=== PATIENT | male | born 1970 | race Caucasian/White ===

== ENCOUNTER → 2018-02-26 17:32 | Outpatient (CLI) | payer OTHER, SELFPAY | PROVIDERS: PCP Physician Assistant; Visit Provider Physician Assistant | DX: Z01.818 Encounter for other preprocedural examination (principal) | CPT/HCPCS: 87070 ==

== ENCOUNTER → 2018-03-13 07:00 | Outpatient (CLI) | payer OTHER, SELFPAY ==
[2018-03-13 08:16] LABS: Add Manual Diff / Slide Review NO; Basophils Percent Auto 0.5 % (0-2); Eosinophils Percent Auto 1.5 % (2-4); Hematocrit 44.6 % (41-53); Hemoglobin 15.4 g/dL (13.5-17.5); Mean Corpuscular HGB Conc 34.4 % (30-36); Mean Corpuscular Volume 92.9 fL (80-100); Monocytes Percent Auto 9.2 % (3-14); Neutrophils Absolute Auto 6000 /uL (3000-5900); Neutrophils Percent Auto 62.8 % (50-75); Platelet Count 268 X10^3/uL (150-400); Red Cell Distribution Width 13.4 % (11.6-14.8); White Blood Cell Count 9.6 X10^3/uL (4.5-11.0)
[2018-03-13 08:27] LABS: Hemoglobin A1C% w Est Avg Glu 5.3 % (4.0-6.0)
[2018-03-13 08:30] LABS: Alanine Aminotransferase 37 IU/L (21-72); Albumin 4.7 g/dL (3.5-5.0); Albumin Globulin Ratio 1.7 (1.0-2.8); Alkaline Phosphatase 50 U/L (38-126); Aspartate Aminotransferase 30 IU/L (17-59); Bilirubin Total 0.6 mg/dL (0.2-1.3); Blood Urea Nitrogen 20 mg/dL (9-20); Calcium 9.5 mg/dL (8.4-10.2); Carbon Dioxide 30 mmol/L (22-32); Chloride 99 mmol/L (98-107); Estimated Glomerular Filt Rate > 60.0 mL/min (>60); Globulin 2.8 g/dL (1.7-4.1); Glucose 88 mg/dL (70-100); HEMOLYSIS < 15 (0-50); Potassium 4.5 mmol/L (3.4-5.1); Sodium 139 mmol/L (137-145); Total Protein 7.5 g/dL (6.3-8.2)
== END ==
PROVIDERS: PCP Physician Assistant; Visit Provider Physician Assistant
DX: Z01.818 Encounter for other preprocedural examination (principal)
CPT/HCPCS: 36415; 80053; 83036; 85025

== ENCOUNTER → 2018-07-07 13:27 | Outpatient (CLI) | payer OTHER, SELFPAY ==
--- NOTE | 2018-07-07 13:29 | DI.RAD.S_ITS ---
PROCEDURE: XR WRIST LT MIN 3V INDICATIONS: Pain left wrist radial side TECHNIQUE: 4 views of the wrist were acquired. COMPARISON: None. FINDINGS: Bones: No fractures or dislocations. No suspicious bony lesions. First CMC and triscaphe joint degeneration, mild. Soft tissues: No suspicious soft tissue calcifications. 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 on 07/07/2018 at 14:55 Approved by: Justo Graham M.D. on 07/07/2018 at 15:00
== END ==
PROVIDERS: PCP Physician Assistant; Visit Provider Physician Assistant
DX: M25.532 Pain in left wrist (principal); M18.12 Unilateral primary osteoarthritis of first carpometacarpal joint, left hand; M19.032 Primary osteoarthritis, left wrist
CPT/HCPCS: 73110

== ENCOUNTER 2018-09-28 09:18 | Emergency (ER) | payer OTHER, MEDICAID, SELFPAY ==
[2018-09-28 09:32] VITALS: BP 187/98; PULSE 74; RESP 18; TEMP 36.5; O2SAT 100; BMI 26.6
[2018-09-28] MEDS: SODIUM CHLORIDE 0.9% 1,000 ML 1000 ML IV (10:13)
--- NOTE | 2018-09-28 10:16 | ED_ITS ---
HPI - Male Genitourinary General Chief complaint: Urogenital-Male Stated complaint: ABD PAIN Time Seen by Provider: 09/28/18 09:29 Source: patient Mode of arrival: ambulatory Limitations: no limitations History of Present Illness HPI Narrative: Patient presents to the emergency department complaining of right flank pain that began last night while having a bowel movement. Patient states that he has had existing pain in the area since about a week ago, after he went hiking and strained his ribs . Patient states, however, that the pain was beginning to improve and that he actually could not needed his pain medication anymore, when the episode occurred last night. Patient states that while he was sitting on the toilet straining, he suddenly felt a severe pain in his right lower posterior ribcage and states that this was a /10. States that ever since then, the pain has been worse than it was prior to the incident. Patient states the pain is made worse by anything that causes him to strain, such as coughing, sneezing, or blowing; he also states that deep breaths make the pain worse, as to certain movements. He denies shortness of breath, but states it hurts to take a deep breath. Patient states that he has not had a cough or fever. He had noticed some bruising on his right upper abdominal wall after the rib injury, but that this is resolving. He states he did feel that the pain wraps around to his right upper quadrant, but it seemed that it was located mostly in the flank area. Patient denies nausea. No constipation or diarrhea. No chest pain. Patient is hard of hearing but otherwise states that he is healthy and active. Patient is not known to have any gallbladder issues, and no history of this in the family either. Related Data Home Medications Medication Instructions Recorded Confirmed Flonase 50 mcg INHALATION PRN 02/26/18 10/01/18 Gabapentin 300 mg PO QAM 02/26/18 10/01/18 Centrum for Men 1 tab PO .QDAY 03/11/18 10/01/18 Previous Rx's Medication Instructions Recorded metoprolol succinate ER 50 mg 50 mg PO DAILY #90 tab 04/30/18 tablet,extended release 24 hr escitalopram 20 mg tablet 20 mg PO DAILY #90 tab 07/03/18 bupropion HCl 100 mg tablet 100 mg PO BID #60 tab 08/27/18 hydrocodone-acetaminophen 1 tab PO Q4-6H PRN #20 tab 09/28/18 ibuprofen 800 mg PO TID PRN #20 tab 09/28/18 tamsulosin 0.4 mg capsule 0.4 mg PO DAILY #60 cap 10/01/18 tramadol 50 mg tablet 50 mg PO TID PRN #30 tab 10/01/18 Allergies Allergy/AdvReac Type Severity Reaction Status Date / Time No Known Drug Allergies Allergy Verified 10/01/18 08:21 Review of Systems Constitutional Denies chills, Denies fever(s), Denies lethargy and Denies weakness Eyes Denies change in vision, Denies eye discharge, Denies irritation and Denies loss of vision ENT Ears, Nose, Mouth, and Throat: Denies change in voice, Denies neck pain and Denies sore throat Cardiovascular Denies chest pain, Denies irregular heart rhythm, Denies lightheadedness, Denies palpitations, Denies dyspnea, Denies dyspnea on exertion and Denies orthopnea Respiratory Denies cough, Denies dyspnea, Denies dyspnea on exertion and Denies wheezing Gastrointestinal Gastrointestinal: Denies abdominal pain, Denies change in bowel habits, Denies diarrhea, Denies nausea and Denies vomiting Genitourinary Denies hematuria, Denies flank pain, Denies urinary incontinence and Denies urinary urgency Musculoskeletal Denies neck pain Comments: Right posterior rib pain Integumentary/Breasts Denies pruritus, Denies erythema, Denies rash and Denies wounds Neurologic Denies confusion, Denies loss of vision and Denies weakness Psychiatric Denies anxiety, Denies confusion, Denies depression, Denies homicidal ideation and Denies suicidal ideation Endocrine Denies palpitations Hematologic/Lymphatic Denies easy bruising Allergic/Immunologic Denies wheezing [facility] Medical History Healthy adult (Acute) Allergy (Resolved Unknown) Anorexia nervosa (Inactive) Depression (Inactive) Hearing loss (Inactive ~1970) Surgical History No pertinent past surgical history (Acute) Social History marital status: unmarried,single pets and animals: Yes education level: college occupational status: employed seatbelt use: always water heater temp set < 120 deg: Yes working smoke detector in home: Yes fire extinguisher in home: Yes Smoking Status: Never smoker second hand exposure: No alcohol intake: former substance use type: marijuana during the past year weight has: decreased > 10 lbs well-balanced diet: daily or most days daily servings fruits/ve-4 caffeine: Yes eating out: rarely or never Social History marital status: unmarried,single pets and animals: Yes education level: college occupational status: employed seatbelt use: always water heater temp set < 120 deg: Yes working smoke detector in home: Yes fire extinguisher in home: Yes Smoking Status: Never smoker second hand exposure: No alcohol intake: former substance use type: marijuana during the past year weight has: decreased > 10 lbs well-balanced diet: daily or most days daily servings fruits/ve-4 caffeine: Yes eating out: rarely or never Exam Initial Vital Signs Initial Vital Signs: Vital Signs Temperature 97.7 F 09/28/18 09:32 Pulse Rate 74 09/28/18 09:32 Respiratory Rate 18 09/28/18 09:32 Blood Pressure 187/98 H 09/28/18 09:32 Pulse Oximetry 100 09/28/18 09:32 Const General: cooperative and well developed Nutritional Appearance: well nourished Orientation: alert, awake, oriented x3 and not confused HENMT Head: normocephalic and atraumatic Ears: external ears normal and TM's normal bilaterally Nose: external nose normal and No nasal discharge Face and sinus: sinuses nontender, face symmetric, no sinus tenderness and No dry mucous membranes Mouth: oral mucosae normal and moist mucous membranes Teeth and gingiva: dentition normal Throat: tonsils normal and uvula midline Eyes General: appearance normal, both eyes and all related structures Eyelids: eyelids normal Conjunctivae: conjunctivae normal Sclera: sclerae normal Pupils: PERRL EOM: EOM intact bilaterally Neck Neck: normal visual inspection, trachea midline, No lymphadenopathy, No midline deformity and No JVD Lymphatic: No lymphedema Chest Chest: normal inspection of the chest Other: Patient has tenderness over his posterior inferior rib cage laterally over ribs 8 through 10. No crepitus or step-off. Resp Effort & Inspection: normal respiratory effort, able to speak in complete sentences, no respiratory distress and no use of accessory muscles Auscultation: clear to auscultation bilaterally, no rales, no rhonchi and no wheezes Cardio Rate: regular rate Rhythm: regular rhythm Heart Sounds: no click, no gallops, no murmurs and no rubs Pulses: normal peripheral pulses GI Inspection: non-distended Palpation: soft, no hepatosplenomegaly, No guarding, No pulsatile mass and No tender Auscultation: normal bowel sounds Back/Spine/Pelvis Back: No CVA tenderness Cervical Spine: cervical ROM normal and No pain with cervical ROM Thoracic/Lumbar Spine: thoracic and lumbar spine normal to inspection Skin General: no rashes or lesions noted, No jaundice and No petechiae Neuro General: alert, oriented x3, gait normal and no focal motor deficits Speech: speech normal Extrem General: full ROM, no clubbing, cyanosis or edema, no pedal edema and no calf tenderness Psych Appearance: well kempt Mental Status: mental status grossly normal Attitude: cooperative Thought Content: normal and suicidality Judgment: judgment good Course Course Narrative: Patient was worked up with urinalysis, lab work, and imaging. He was treated symptomatically with Toradol and Dilaudid IV. labs were unremarkable, and patient was further worked up with a CT scan of the abdomen and pelvis. This was also unremarkable. I did discuss with the patient that most likely, the pain is coming from the thoracic strain he sustained last week. Ribs are visible on CT scan up to the area where the patient is hurting, and no fractures have been noted. No emergent condition has been identified at this time and the usual indications for return have been discussed. Orders Ordered: Discontinued Medications Hydromorphone HCl (Dilaudid) 1 mg IV NOW ONE Stop: 09/28/18 10:17 Last Admin: 09/28/18 10:31 Dose: 1 mg Hydromorphone HCl (Dilaudid) 1 mg IV NOW ONE Stop: 09/28/18 13:55 Last Admin: 09/28/18 14:00 Dose: 1 mg Sodium Chloride (Normal Saline 0.9%) 1,000 mls @ 1,000 mls/hr IV BOLUS ONE Stop: 09/28/18 11:03 Last Infusion: 09/28/18 11:36 Dose: 0 mls/hr Admin: 09/28/18 10:13 Dose: 1,000 mls/hr Ketorolac Tromethamine (Toradol) 30 mg IV NOW ONE Stop: 09/28/18 10:17 Last Admin: 09/28/18 10:31 Dose: 30 mg Vital Signs - 8 hr 09/28/18 09:32 Temperature 97.7 F Pulse Rate 74 Respiratory Rate 18 Blood Pressure 187/98 H Pulse Oximetry 100 MDM - Male Genitourinary Medical Records Attestation: I reviewed the patient's medical records. Lab Data Attestation: I reviewed the patient's lab results. Result diagrams: 09/28/18 10:20 09/28/18 10:20 Lab Results 09/28/18 09/28/18 09/28/18 Range/Units 10:20 10:20 10:20 WBC 8.9 (4.5-11.0) X10^3/uL RBC 4.41 L (4.5-5.9) X10^6/uL Hgb 13.6 (13.5-17.5) g/dL Hct 40.0 L (41-53) % MCV 90.8 (80-100) fL MCH 30.9 (26-34) PG MCHC 34.0 (30-36) % RDW 13.4 (11.6-14.8) % Plt Count 208 (150-400) X10^3/uL Neut % (Auto) 70.9 (50-75) % Lymph % (Auto) 19.4 L (25-40) % [place] % (Auto) 8.3 (3-14) % Eos % (Auto) 0.7 L (2-4) % Baso % (Auto) 0.7 (0-2) % Neut # (Auto) 6300 (8922-4177) /uL Lymph # (Auto) 1700 (1037-3949) /uL [place] # (Auto) 700 (0-900) /uL Eos # (Auto) 100 (0-450) /uL Baso # (Auto) 100 (0-100) /uL Sodium 138 (137-145) mmol/L Potassium 3.6 (3.4-5.1) mmol/L Chloride 100 (98-107) mmol/L Carbon Dioxide 25 (22-32) mmol/L BUN 18 (9-20) mg/dL Creatinine 0.70 (0.66-1.25) mg/dL Estimated GFR > 60.0 (>60) mL/min BUN/Creatinine Ratio 25.7 H (6-22) Glucose 92 (70-100) mg/dL Calcium 9.5 (8.4-10.2) mg/dL Total Bilirubin 0.5 (0.2-1.3) mg/dL AST 26 (17-59) IU/L ALT 36 (21-72) IU/L Alkaline Phosphatase 64 (38-126) U/L Total Protein 7.3 (6.3-8.2) g/dL Albumin 4.5 (3.5-5.0) g/dL Globulin 2.8 (1.7-4.1) g/dL Albumin/Globulin Ratio 1.6 (1.0-2.8) Lipase 88 (23-300) U/L Urine Dip Bedside Urine Glucose Negative Bedside Urine Bilirubin - Negative Bedside Urine Ketone - Negative Urine Specific [place] 1.015 Bedside Urine Occult Blood - Negative Bedside Urine pH 7.0 Bedside Urine Protein - Negative Bedside Urine Urobilinogen - Negative Bedside Urine Nitrite - Negative Bedside Urine Leukocytes - Negative Esterase Imaging Data CT scan - abdomen: Radiologist's impression: PROCEDURE: CT KIDNEY URETER BLADDER (KUB) INDICATIONS: R flank pain (up to ribs) TECHNIQUE: Noncontrast 5 mm thick sections acquired from the diaphragms to the symphysis. 5 mm thick coronal and sagittal reformats were then performed. For radiation dose reduction, the following was used: automated exposure control, adjustment of mA and/or kV according to patient size. COMPARISON: None. FINDINGS: Image quality: Excellent. Lung bases: Lung bases are clear. Heart size is normal. Urinary system: Both kidneys are normal in size. No kidney stones. No hydronephrosis or perinephric fat stranding. Both ureters appear non-dilated throughout their expected courses. Bladder wall thickness is normal; no calcified bladder stones. Other solid organs: Liver is normal in size. Gallbladder is unremarkable.. Pancreas is normal in contours. Spleen is normal in size. No adrenal nodules. Peritoneum and bowel: Unenhanced bowel loops demonstrate normal wall thickness and caliber. No free fluid or air. Normal appendix. No abscess. Nodes and vessels: No retroperitoneal or mesenteric adenopathy by size criteria. Aorta and inferior vena cava are normal in caliber. Abdominal wall: No ventral hernias. Pelvis: No free pelvic fluid. No inguinal hernias or adenopathy. Bones: No suspicious bony lesions. No vertebral body compression fractures. IMPRESSION: 1. No evidence of renal stone or ureteral stone. 2. Otherwise unremarkable CT KUB. Dictated by: Nii Bales M.D. on 09/28/2018 at 11:53 Approved by: Nii Bales M.D. on 09/28/2018 at 11:57 Discharge Plan Departure Patient Disposition: Home Clinical Impression: Rib pain on right side, Acute right flank pain Discharge Date/Time: 09/28/18 14:51 Interventions: ED Discharge Assessment Last Done: 09/28/18 14:51 Instructions: DI for Rib Contusion, DI for Flank Pain Activity Restrictions/Additional Instructions: Your CT scan looks good. There is no evidence of problems with any of your organs. There is also no evidence of any broken ribs. When you were straining last night, you most likely aggravated the area where the strain occurred, and this is the cause of the pain. This should get better on its own the next couple weeks. You may use pain medication and anti-inflammatories, as needed. Prescriptions: New ibuprofen 800 mg tablet 800 mg PO TID PRN (Reason: pain) Qty: 20 RF: 0 hydrocodone-acetaminophen 5-325 mg tablet 1 tab PO Q4-6H PRN (Reason: pain) Qty: 20 RF: 0 No Action Flonase 50 mcg INHALATION PRNRF: 0 Gabapentin 300 mg PO QAM RF: 0 Centrum for Men 1 tab PO .QDAY RF: 0 metoprolol succinate 50 mg tablet extended release 24 hr 50 mg PO DAILY Qty: 90 RF: 0 escitalopram oxalate 20 mg tablet 20 mg PO DAILY Qty: 90 RF: 3 bupropion HCl 100 mg tablet 100 mg PO BID Qty: 60 RF: 3 tramadol 50 mg tablet 50 mg PO TID PRN (Reason: pain) Qty: 30 RF: 3 tamsulosin 0.4 mg capsule 0.4 mg PO DAILY Qty: 60 RF: 3 Referrals: Yulisa Drew PA-C [Primary Care Provider] -
[2018-09-28 10:31] LABS: Add Manual Diff / Slide Review NO; Basophils Absolute Auto 100 /uL (0-100); Basophils Percent Auto 0.7 % (0-2); Eosinophils Absolute Auto 100 /uL (0-450); Eosinophils Percent Auto 0.7 % (2-4); Hemoglobin 13.6 g/dL (13.5-17.5); Lymphocytes Absolute Auto 1700 /uL (1100-4500); Lymphocytes Percent Auto 19.4 % (25-40); Mean Corpuscular Hemoglobin 30.9 PG (26-34); Mean Corpuscular Volume 90.8 fL (80-100); Monocytes Absolute Auto 700 /uL (0-900); Monocytes Percent Auto 8.3 % (3-14); Neutrophils Absolute Auto 6300 /uL (1500-7000); Neutrophils Percent Auto 70.9 % (50-75); Platelet Count 208 X10^3/uL (150-400); Red Blood Cell Count 4.41 X10^6/uL (4.5-5.9); Red Cell Distribution Width 13.4 % (11.6-14.8); White Blood Cell Count 8.9 X10^3/uL (4.5-11.0)
[2018-09-28] MEDS: KETOROLAC 60 MG/2 ML VIAL 30 MG IV (10:31)
[2018-09-28] MEDS: HYDROMORPHONE 1 MG INJ IV ×2 (10:31→14:00)
[2018-09-28 10:39] LABS: Lipase 88 U/L (23-300)
[2018-09-28 10:40] LABS: Alanine Aminotransferase 36 IU/L (21-72); Albumin 4.5 g/dL (3.5-5.0); Albumin Globulin Ratio 1.6 (1.0-2.8); Alkaline Phosphatase 64 U/L (38-126); Aspartate Aminotransferase 26 IU/L (17-59); BUN Creatinine Ratio 25.7 (6-22); Bilirubin Total 0.5 mg/dL (0.2-1.3); Blood Urea Nitrogen 18 mg/dL (9-20); Calcium 9.5 mg/dL (8.4-10.2); Carbon Dioxide 25 mmol/L (22-32); Chloride 100 mmol/L (98-107); Estimated Glomerular Filt Rate > 60.0 mL/min (>60); Globulin 2.8 g/dL (1.7-4.1); Glucose 92 mg/dL (70-100); HEMOLYSIS < 15 (0-50); Potassium 3.6 mmol/L (3.4-5.1); Sodium 138 mmol/L (137-145); Total Protein 7.3 g/dL (6.3-8.2)
--- NOTE | 2018-09-28 11:22 | DI.CT.S_ITS ---
PROCEDURE: CT KIDNEY URETER BLADDER (KUB) INDICATIONS: R flank pain (up to ribs) TECHNIQUE: Noncontrast 5 mm thick sections acquired from the diaphragms to the symphysis. 5 mm thick coronal and sagittal reformats were then performed. For radiation dose reduction, the following was used: automated exposure control, adjustment of mA and/or kV according to patient size. COMPARISON: None. FINDINGS: Image quality: Excellent. Lung bases: Lung bases are clear. Heart size is normal. Urinary system: Both kidneys are normal in size. No kidney stones. No hydronephrosis or perinephric fat stranding. Both ureters appear non-dilated throughout their expected courses. Bladder wall thickness is normal; no calcified bladder stones. Other solid organs: Liver is normal in size. Gallbladder is unremarkable.. Pancreas is normal in contours. Spleen is normal in size. No adrenal nodules. Peritoneum and bowel: Unenhanced bowel loops demonstrate normal wall thickness and caliber. No free fluid or air. Normal appendix. No abscess. Nodes and vessels: No retroperitoneal or mesenteric adenopathy by size criteria. Aorta and inferior vena cava are normal in caliber. Abdominal wall: No ventral hernias. Pelvis: No free pelvic fluid. No inguinal hernias or adenopathy. Bones: No suspicious bony lesions. No vertebral body compression fractures. IMPRESSION: 1. No evidence of renal stone or ureteral stone. 2. Otherwise unremarkable CT KUB. Dictated by: Nii Bales M.D. on 09/28/2018 at 11:53 Approved by: Nii Bales M.D. on 09/28/2018 at 11:57
[2018-09-28 11:39] VITALS: BP 146/104; PULSE 72; RESP 17; O2SAT 98
[2018-09-28 12:03] VITALS: BP 153/99; PULSE 76; O2SAT 98
[2018-09-28 13:30] VITALS: BP 156/102; PULSE 80; O2SAT 95
== END 2018-09-28 14:51 | disposition home or self-care (01) ==
PROVIDERS: Emergency Provider Emergency Medicine; PCP Physician Assistant
DX: R10.9 Unspecified abdominal pain (principal)
CPT/HCPCS: 36415; 36591; 74176; 80053; 81003; 83690; 85025; 96361; 96374; 96375; 96376; 99283; 99284; J1170; J1885

== ENCOUNTER → 2018-10-13 07:41 | Outpatient (CLI) | payer OTHER, MEDICAID, SELFPAY ==
--- NOTE | 2018-10-13 07:44 | DI.MRI.S_ITS ---
PROCEDURE: MR LUMBAR SPINE WO CON INDICATIONS: Low back pain; weakness left lower leg TECHNIQUE: Noncontrast sagittal T1 spin echo and T2 fast echo, sagittal STIR, axial T1 and T2 fast spin echo through the lumbar spine. In cases with scoliosis, additional coronal T2 fast spin echo may be performed. COMPARISON: None. FINDINGS: Image quality: Excellent. Alignment and Curvature: There is normal bony alignment. Bone Marrow: Marrow is of normal overall signal. No acute vertebral body compression fractures. Spinal Cord: Conus medullaris terminates at the L1-L2 level. Visualized cord demonstrates normal signal and size. Paraspinous Soft Tissues: No paravertebral masses. L1-L2: Normal appearance. L2-L3: Normal appearance. L3-L4: Normal appearance. L4-L5: Normal appearance. L5-S1: Preserved disc height. Mild disc desiccation. There is mild posterior disc bulge and small posterior central annular fissure. The central canal is patent. No foraminal stenosis.. IMPRESSION: 1. Degenerative disc disease at L5-S1 with posterior disc bulge and posterior central annular fissure. 2. No central canal stenosis. 3. No foraminal stenosis. Dictated by: Raudel Blackwood M.D. on 10/13/2018 at 8:58 Approved by: Raudel Blackwood M.D. on 10/13/2018 at 13:17
== END ==
PROVIDERS: PCP Physician Assistant; Visit Provider Physician Assistant
DX: M54.5 Low back pain (principal); M51.17 Intervertebral disc disorders with radiculopathy, lumbosacral region; R29.898 Other symptoms and signs involving the musculoskeletal system
CPT/HCPCS: 72148

== ENCOUNTER → 2018-10-27 11:03 | Outpatient (CLI) | payer OTHER, MEDICAID, SELFPAY ==
--- NOTE | 2018-10-27 11:06 | DI.RAD.S_ITS ---
PROCEDURE: XR RIBS RT MIN 3V W CXR 1V INDICATIONS: Fall while hiking in September;persistant rib pain on right side TECHNIQUE: 2 views of the right ribs were acquired, along with a single view chest. COMPARISON: None. FINDINGS: Surgical changes and devices: None. Bones and chest wall: No fractures or dislocations. No suspicious bony lesions. Overlying soft tissues appear unremarkable. Lungs and pleura: No pleural effusions or pneumothorax. Lungs appear clear. Mediastinum: Mediastinal contours appear normal. Heart size is normal. IMPRESSION: No trauma found. Dictated by: Andres Hernandez M.D. on 10/27/2018 at 12:43 Approved by: Andres Hernandez M.D. on 10/27/2018 at 12:43
== END ==
PROVIDERS: PCP Physician Assistant; Visit Provider Physician Assistant
DX: R07.81 Pleurodynia (principal)
CPT/HCPCS: 71101

== ENCOUNTER 2018-11-27 15:20 | Emergency (ER) | payer OTHER, MEDICAID, SELFPAY ==
--- NOTE | 2018-11-27 15:27 | PC.NURSE ---
1519 recieved pt from em[facility], pt to room 2, met the pt states, i want to get check right away, I need to be dc in 5minutes, dr bearden at bs. pt escalating, rips out cardiac rehabilitation program director, yelling and swearing, f you. on arrival placed on cardiac rehabilitation program director hr 119, sat 98% ra. pt repeatedly stating check me and dc in 5 minutes or else I will be walking out.
--- NOTE | 2018-11-27 15:30 | PC.NURSE ---
rechargerbrijesh helms, called police.
--- NOTE | 2018-11-27 15:46 | CM.MNRNOTE ---
pt became angry, cursing at staff. pt states i want to leave explained he has not finished his evaluation, and advised against him leaving. pt states fuck you, bitch im leaving pt states where the fuck are my keys, get me the emergency room they have my keys explained to patient he is in the er, we have looked for his keys and not been found. pt again curses at staff and call them foul names. patient asked to leave. pt escorted to door. pt again states fuck you bitch. explained to patient again I would call ambulance and ask if he keys are in the rig, pt curses again. explained to patient his behavior is inappropriate, pt continues with behavior and begins walking aggressivly at staff. pt asked to stop and told the police will be called if he continues to ask inappropriately, pt asked to sit on couch while i called fire department to inquire about keys. pt attempted to follow staff back into department, angery and demanding keys. pt states dont call the bonderite operator explained that if he could calmly sit on couch and stop cursing and being inappropriate, only the ambulance would be called. pt then states fuck that bitch. pt did not follow direction and the police were called. Police arrived and spoke with patient. at registration area. pt calmer. keys were located at [employer] in customer service. Pt informed of location.
--- NOTE | 2018-11-27 15:54 | ED.SYNCOPE ---
HPI - Syncope General Stated Complaint: Altered Mental Status Time Seen by Provider: 11/27/18 15:35 Source: EMS Mode of arrival: EMS History of Present Illness HPI narrative: 48-year-old male smoker presents by EMS with a chief complaint of a syncopal episode while at work. He denies any injury and is alert and oriented by his arrival here. He does have history of alcohol but denies any today. It was his 1st day back at work after an extended period of time off and he is admittedly stressed. He was very resistant to presenting by EMS but was eventually convinced to be checked out. Nearly immediately upon entering the room he insisted upon leaving despite any attempt at discussion of risks and benefits. He has full capacity to make this decision and is awake, alert and oriented. He is speaking clearly and walking with a steady gait. MD complaint: almost passed out Prodromal symptoms: lightheaded Context: at rest Current symptoms: none Related Data Home Medications Medication Instructions Recorded Confirmed Flonase 50 mcg INHALATION PRN 02/26/18 11/04/18 Gabapentin 300 mg PO QAM 02/26/18 11/04/18 Centrum for Men 1 tab PO .QDAY 03/11/18 11/04/18 Previous Rx's Medication Instructions Recorded metoprolol succinate ER 50 mg 50 mg PO DAILY #90 tab 04/30/18 tablet,extended release 24 hr escitalopram 20 mg tablet 20 mg PO DAILY #90 tab 07/03/18 bupropion HCl 100 mg tablet 100 mg PO BID #60 tab 08/27/18 tamsulosin 0.4 mg capsule 0.4 mg PO DAILY #60 cap 10/01/18 hydrocodone 5 mg-acetaminophen 325 1 tab PO BID PRN #30 tab 10/22/18 mg tablet Allergies Allergy/AdvReac Type Severity Reaction Status Date / Time No Known Drug Allergies Allergy Verified 10/22/18 10:33 Review of Systems Constitutional Denies chills, Denies fever(s), Denies lethargy and Denies weakness Eyes Denies change in vision, Denies eye discharge, Denies irritation and Denies loss of vision ENT Ears, Nose, Mouth, and Throat: Denies change in voice, Denies neck pain and Denies sore throat Cardiovascular Denies chest pain, Reports syncope, Denies irregular heart rhythm, Denies lightheadedness, Denies palpitations, Denies dyspnea, Denies dyspnea on exertion and Denies orthopnea Respiratory Denies cough, Denies dyspnea, Denies dyspnea on exertion and Denies wheezing Gastrointestinal Gastrointestinal: Denies abdominal pain, Denies change in bowel habits, Denies diarrhea, Denies nausea and Denies vomiting Genitourinary Denies hematuria, Denies flank pain, Denies urinary incontinence and Denies urinary urgency Musculoskeletal Denies neck pain Integumentary/Breasts Denies pruritus, Denies erythema, Denies rash and Denies wounds Neurologic Denies confusion, Reports syncope, Denies loss of vision and Denies weakness Psychiatric Denies anxiety, Denies confusion, Denies depression, Denies homicidal ideation and Denies suicidal ideation Endocrine Denies palpitations Hematologic/Lymphatic Denies easy bruising Allergic/Immunologic Denies wheezing PFSH Medical History Allergy (Resolved Unknown) Anorexia nervosa (Inactive) Depression (Inactive) Healthy adult (Inactive) Hearing loss (Inactive ~1970) Surgical History No pertinent past surgical history (Resolved) Social History marital status: unmarried,single pets and animals: Yes education level: college occupational status: employed seatbelt use: always water heater temp set < 120 deg: Yes working smoke detector in home: Yes fire extinguisher in home: Yes Smoking Status: Never smoker second hand exposure: No alcohol intake: former substance use type: marijuana during the past year weight has: decreased > 10 lbs well-balanced diet: daily or most days daily servings fruits/ve-4 caffeine: Yes eating out: rarely or never Social History marital status: unmarried,single pets and animals: Yes education level: college occupational status: employed seatbelt use: always water heater temp set < 120 deg: Yes working smoke detector in home: Yes fire extinguisher in home: Yes Smoking Status: Never smoker second hand exposure: No alcohol intake: former substance use type: marijuana during the past year weight has: decreased > 10 lbs well-balanced diet: daily or most days daily servings fruits/ve-4 caffeine: Yes eating out: rarely or never Exam Narrative Exam Narrative: Patient refused He is alert and oriented. He is speaking clearly and walking with a steady gait. He has no obvious injury MDM - Syncope MDM Narrative Medical decision making narrative: Multiple attempts made to convince patient to stay. Offers made to call friends, family or ex-. 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 Discharge Plan Departure Patient Disposition: Left Against Medical Advice Clinical Impression: Left against medical advice Discharge Date/Time: 11/27/18 15:55 Prescriptions: No Action Flonase 50 mcg INHALATION PRNRF: 0 Gabapentin 300 mg PO QAM RF: 0 Centrum for Men 1 tab PO .QDAY RF: 0 metoprolol succinate 50 mg tablet extended release 24 hr 50 mg PO DAILY Qty: 90 RF: 0 escitalopram oxalate 20 mg tablet 20 mg PO DAILY Qty: 90 RF: 3 bupropion HCl 100 mg tablet 100 mg PO BID Qty: 60 RF: 3 tamsulosin 0.4 mg capsule 0.4 mg PO DAILY Qty: 60 RF: 3 hydrocodone-acetaminophen 5-325 mg tablet 1 tab PO BID PRN (Reason: pain) Qty: 30 RF: 0 Stand Alone Forms: Against Medical Advice
== END 2018-11-27 15:55 | disposition left against medical advice (07) ==
LOC: ED 15:52
PROVIDERS: Emergency Provider Emergency Medicine; PCP Physician Assistant
DX: R55 Syncope and collapse (principal); Z53.20 Procedure and treatment not carried out because of patient's decision for unspecified reasons
CPT/HCPCS: 99282

== ENCOUNTER → 2018-12-23 09:37 | Outpatient (CLI) | payer OTHER, MEDICAID, SELFPAY ==
--- NOTE | 2018-12-23 09:40 | DI.RAD.S_ITS ---
PROCEDURE: XR RIBS RT MIN 3V W CXR 1V INDICATIONS: s/p fall, right neck pain, right lower rib pain TECHNIQUE: 3 views of the right ribs were acquired, along with a single view chest. COMPARISON: [facility], CR, XR RIBS RT MIN 3V W CXR 1V, 10/27/2018, 11:08. FINDINGS: Surgical changes and devices: None. Bones and chest wall: Right lateral 9th rib fracture with sclerosis. This is new compared to prior exam. No suspicious bony lesions. Overlying soft tissues appear unremarkable. Lungs and pleura: No pleural effusions or pneumothorax. Lungs appear clear. Mediastinum: Mediastinal contours appear normal. Heart size is normal. IMPRESSION: Subacute lateral right ninth rib fracture. Dictated by: Meena Young M.D. on 12/23/2018 at 11:02 Approved by: Meena Young M.D. on 12/23/2018 at 11:06
--- NOTE | 2018-12-23 09:40 | DI.RAD.S_ITS ---
PROCEDURE: XR CERVICAL SPINE 2V OR 3V INDICATIONS: s/p fall, right neck pain, right lower rib pain TECHNIQUE: 3 view(s) of the cervical spine were acquired. COMPARISON: None. FINDINGS: Bones: No fractures or dislocations to the C7-T1 level. The lateral masses of C1 appear intact on the odontoid view. No suspicious bony lesions. Anterior fusion is present at C5-6. Hardware is intact. Soft tissues: No prevertebral soft tissue swelling. IMPRESSION: No visualized acute fracture or dislocation. However, if clinical concern and/or pain persist, short interval imaging followup in 7-10 days is recommended, as occult injury cannot be definitively excluded. Dictated by: Meena Young M.D. on 12/23/2018 at 11:06 Approved by: Meena Young M.D. on 12/23/2018 at 11:06
== END ==
PROVIDERS: PCP Physician Assistant; Visit Provider Nurse Practitioner
DX: M54.2 Cervicalgia (principal); R07.81 Pleurodynia; S22.31XA Fracture of one rib, right side, initial encounter for closed fracture; W19.XXXA Unspecified fall, initial encounter; Z98.1 Arthrodesis status
CPT/HCPCS: 71101; 72040

== ENCOUNTER 2023-04-06 19:24 | Emergency (ER) | payer OTHER, SELFPAY ==
[2023-04-06 19:28] VITALS: BP 153/74; PULSE 79; RESP 18; TEMP 37.2; O2SAT 99; BMI 20.3
[2023-04-06] MEDS: HYDROMORPHONE 0.5 MG INJ IV (19:57)
[2023-04-06] MEDS: ONDANSETRON 4 MG/2 ML INJ IV (19:58)
[2023-04-06 19:59] LABS: Add Manual Diff / Slide Review NO; Basophils Absolute Auto 100 /uL (0-100); Basophils Percent Auto 1.1 % (0-2); Eosinophils Absolute Auto 300 /uL (0-450); Eosinophils Percent Auto 3.4 % (2-4); Hematocrit 39.3 % (41-53); Hemoglobin 13.5 g/dL (13.5-17.5); Lymphocytes Absolute Auto 1900 /uL (1100-4500); Lymphocytes Percent Auto 23.8 % (25-40); Mean Corpuscular HGB Conc 34.5 % (30-36); Mean Corpuscular Hemoglobin 30.7 PG (26-34); Monocytes Absolute Auto 800 /uL (0-900); Monocytes Percent Auto 9.7 % (3-14); Neutrophils Absolute Auto 5000 /uL (1500-7000); Platelet Count 271 X10^3/uL (150-400); Red Blood Cell Count 4.41 X10^6/uL (4.5-5.9); White Blood Cell Count 8.1 X10^3/uL (4.5-11.0)
[2023-04-06 20:13] LABS: Alanine Aminotransferase 21 IU/L (<50); Albumin 4.5 g/dL (3.5-5.0); Albumin Globulin Ratio 1.4 (1.0-2.8); Alkaline Phosphatase 53 U/L (38-126); Aspartate Aminotransferase 22 IU/L (17-59); Bilirubin Total 0.3 mg/dL (0.2-1.3); Blood Urea Nitrogen 21 mg/dL (9-20); Calcium 9.3 mg/dL (8.4-10.2); Carbon Dioxide 27 mmol/L (22-32); Chloride 100 mmol/L (98-107); Estimated Glomerular Filt Rate > 60 mL/min (>60); Globulin 3.3 g/dL (1.7-4.1); Glucose 114 mg/dL (70-100); HEMOLYSIS 29 (0-50); Lipase 108 U/L (23-300); Potassium 4.4 mmol/L (3.4-5.1); Sodium 137 mmol/L (137-145); Total Protein 7.8 g/dL (6.3-8.2)
[2023-04-06 20:42] LABS: Bacteria Urine None Seen; RBC Urine 0-1/HPF (0-5/HPF); Squamous Epithelial Cell Urine None Seen (0-5/HPF); WBC Urine 0-1/HPF (0-5/HPF)
[2023-04-06 20:43] LABS: Triple Phosphate Crystal Urine Few
--- NOTE | 2023-04-06 21:25 | DI.CT.S_ITS ---
PROCEDURE: CT ABDOMEN PELVIS W CON INDICATIONS: Abdominal pain. TECHNIQUE: After the administration of intravenous contrast, axial sections acquired from the lung bases to the pubic symphysis. Coronal and sagittal reformats were performed. For radiation dose reduction, the following was used: automated exposure control, adjustment of mA and/or kV according to patient size. COMPARISON: None. FINDINGS: Image quality: Excellent. Lung bases: Unremarkable. Heart: No significant findings. ABDOMEN: Liver: Unremarkable. Gallbladder: Unremarkable. Biliary ducts: Unremarkable. Pancreas: Unremarkable. Spleen: Unremarkable. Adrenal Glands: Unremarkable. Kidneys and Ureters: Unremarkable. Stomach and Bowel: Stomach, small bowel loops, and colon are unremarkable. Generalized colonic obstipation. Peritoneum: No abnormal intraperitoneal fluid. No free air. Ventral Wall: No hernias. Abdominal Nodes: No retroperitoneal or mesenteric adenopathy by size criteria. Vessels: Aorta and inferior vena cava are normal in size. PELVIS: Pelvic Organs: Unremarkable. Bladder: Unremarkable. Pelvic Nodes: No enlarged lymph nodes. Miscellaneous: No hernias are seen. Generalized colonic obstipation. A normal or abnormal appendix could not be located. Bones: Unremarkable. IMPRESSION: Generalized colonic obstipation, present bilaterally. No definite acute disease. Dictated by: Andres Hernandez M.D. on 04/06/2023 at 21:48 Approved by: Andres Hernandez M.D. on 04/06/2023 at 21:49
--- NOTE | 2023-04-06 21:26 | ED.GENADULT ---
HPI - General Adult General Chief complaint: Abdominal Pain Stated complaint: stomach pain bowl obstruction Time Seen by Provider: 04/06/23 19:49 Source: patient Mode of arrival: Ambulatory History of Present Illness HPI narrative: 53-year-old gentleman with a history of significant anxiety presents with 4 days of increasing abdominal pain. He states that he feels that he is constipated however he has been fairly aggressive with trying to resolve his constipation and has used multiple doses of magnesium citrate, MiraLax as well as Dulcolax. He is had episodes of moderate stool in quite a bit of diarrhea. Having increasing suprapubic and left lower quadrant pain. Does not describe nausea, vomiting, chest pain or fevers. He has been increasingly bloated and has been uncomfortable enough that he has not been able to sleep for the past 24 hours. Related Data Home Medications Medication Instructions Recorded Confirmed Centrum for Men 1 tab PO .QDAY 03/11/18 05/17/22 Previous Rx's Medication Instructions Recorded gabapentin 300 mg capsule 300 mg PO BID #60 caps 09/19/21 bupropion HCl 150 mg 24 hr tablet, 150 mg PO QAM #90 tabs 05/17/22 extended release cyclobenzaprine 10 mg tablet 10 mg PO BEDTIME #30 tabs 05/17/22 escitalopram oxalate 20 mg tablet 20 mg PO DAILY #90 tabs 05/17/22 meloxicam 7.5 mg tablet 7.5 mg PO BID PRN hand pain #60 05/17/22 tabs Allergies Allergy/AdvReac Type Severity Reaction Status Date / Time No Known Drug Allergies Allergy Verified 05/17/22 13:55 Review of Systems Review of Systems Narrative: Pertinent positive and negative findings as per HPI Patient History Medical History (Updated 04/06/23 @ 23:24 by Archana Klein MD) Allergy (Unknown) Anorexia nervosa Depression Healthy adult Hearing loss (~1971) Surgical History No pertinent past surgical history Social History marital status: unmarried,single pets and animals: Yes education level: college occupational status: employed seatbelt use: always water heater temp set < 120 deg: Yes working smoke detector in home: Yes fire extinguisher in home: Yes Smoking Status: Never smoker second hand exposure: No alcohol intake: former substance use type: marijuana during the past year weight has: decreased > 10 lbs well-balanced diet: daily or most days daily servings fruits/ve-4 caffeine: Yes eating out: rarely or never Smoking Status: Never smoker alcohol intake frequency: a few times a month Substance Use Type: marijuana Exam Initial Vital Signs Initial Vital Signs: Vital Signs Temperature 99 F 04/06/23 19:28 Pulse Rate 79 04/06/23 19:28 Respiratory Rate 18 04/06/23 19:28 Blood Pressure 153/74 H 04/06/23 19:28 Pulse Oximetry 99 04/06/23 19:28 Oxygen Delivery Method Room Air 04/06/23 19:28 General: Frail appearing, unable to find a comfortable position and pacing about the room. Able to give a complete and coherent history. HEENT: Moist mucous membranes, normal sclera with reactive pupils, Respiratory: Lungs are clear to auscultation, no wheezing no rales no rhonchi. Full and symmetrical air movement Cardiac: Regular rate and rhythm no murmurs no bruits Abdomen: Slightly distended with left lower quadrant and mild suprapubic tenderness. No left flank pain. No rebound or guarding. Skin: Warm and dry, no rashes Neurologic: Grossly neurologically intact with no obvious asymmetries or abnormalities Extremities: No trauma, well perfused Psych: Cooperative, anxious, appropriate insight and affect Course Orders Ordered: ED Orders 04/06/23 19:38 EKG-12 Lead Stat 04/06/23 19:50 Complete Blood Count AUTO DIFF Stat Comprehensive Metabolic Panel Stat Lipase Stat 04/06/23 20:18 Urine Culture Stat Urine Microscopic Stat 04/06/23 21:25 CT abdomen pelvis w con Stat Hydromorphone HCl (Hydromorphone 0.5 Mg Inj) 0.5 mg IV Q15MIN PRN PRN Reason: Pain, Last Admin: 04/06/23 19:57 Dose: 0.5 mg Documented By: FLAQUITO Ondansetron HCl (Ondansetron 4 Mg Odt) 4 mg PO NOW PRN PRN Reason: Nausea And Vomiting Ondansetron HCl (Ondansetron 4 Mg/2 Ml Inj) 4 mg IV NOW PRN PRN Reason: Nausea And Vomiting Discontinued Medications Lorazepam (Lorazepam 2 Mg/Ml Inj) 0.5 mg IV NOW ONE Stop: 04/06/23 21:26 Last Admin: 04/06/23 21:57 Dose: 0.5 mg Documented By: JERALD Ondansetron HCl (Ondansetron 4 Mg/2 Ml Inj) 4 mg IV NOW ONE Stop: 04/06/23 19:54 Last Admin: 04/06/23 19:58 Dose: 4 mg Documented By: FLAQUITO Vital Signs Vital signs: Vital Signs - 8 hr 04/06/23 19:28 Temperature 99 F Pulse Rate 79 Respiratory Rate 18 Blood Pressure 153/74 H Pulse Oximetry 99 Oxygen Delivery Method Room Air Medical Decision Making Lab Data 04/06/23 19:50 04/06/23 19:50 Labs: Lab Results 04/06/23 04/06/23 04/06/23 Range/Units 19:50 19:50 20:18 WBC 8.1 (4.5-11.0) X10^3/uL RBC 4.41 L (4.5-5.9) X10^6/uL Hgb 13.5 (13.5-17.5) g/dL Hct 39.3 L (41-53) % MCV 89.0 (80-100) fL MCH 30.7 (26-34) PG MCHC 34.5 (30-36) % RDW 13.0 (11.6-14.8) % Plt Count 271 (150-400) X10^3/uL Neut % (Auto) 62.0 (50-75) % Lymph % (Auto) 23.8 L (25-40) % [place] % (Auto) 9.7 (3-14) % Eos % (Auto) 3.4 (2-4) % Baso % (Auto) 1.1 (0-2) % Neut # (Auto) 5000 (2723-5553) /uL Lymph # (Auto) 1900 (6158-5914) /uL [place] # (Auto) 800 (0-900) /uL Eos # (Auto) 300 (0-450) /uL Baso # (Auto) 100 (0-100) /uL Sodium 137 (137-145) mmol/L Potassium 4.4 (3.4-5.1) mmol/L Chloride 100 (98-107) mmol/L Carbon Dioxide 27 (22-32) mmol/L BUN 21 H (9-20) mg/dL Creatinine 0.75 (0.66-1.25) mg/dL Estimated GFR > 60 (>60) mL/min BUN/Creatinine Ratio 28.0 H (6-22) Glucose 114 H (70-100) mg/dL Calcium 9.3 (8.4-10.2) mg/dL Total Bilirubin 0.3 (0.2-1.3) mg/dL AST 22 (17-59) IU/L ALT 21 (<50) IU/L Alkaline Phosphatase 53 (38-126) U/L Total Protein 7.8 (6.3-8.2) g/dL Albumin 4.5 (3.5-5.0) g/dL Globulin 3.3 (1.7-4.1) g/dL Albumin/Globulin Ratio 1.4 (1.0-2.8) Lipase 108 (23-300) U/L Urine RBC 0-1/hpf (0-5/HPF) Urine WBC 0-1/hpf (0-5/HPF) Ur Squamous Epith Cells None seen (0-5/HPF) Triple Phos Crystals Few Urine Bacteria None seen (None) Urine Dip Bedside Urine Glucose Negative Bedside Urine Bilirubin - Negative Bedside Urine Ketone - Negative Urine Specific [place] 1.005 Bedside Urine Occult Blood - Negative Bedside Urine pH 8.5 Bedside Urine Protein + 30 Bedside Urine Urobilinogen - Negative Bedside Urine Nitrite - Negative Bedside Urine Leukocytes - Negative Esterase Point of care testing: Urine Dip Bedside Urine Glucose Negative Bedside Urine Bilirubin - Negative Bedside Urine Ketone - Negative Urine Specific [place] 1.005 Bedside Urine Occult Blood - Negative Bedside Urine pH 8.5 Bedside Urine Protein + 30 Bedside Urine Urobilinogen - Negative Bedside Urine Nitrite - Negative Bedside Urine Leukocytes - Negative Esterase MDM Narrative Medical decision making narrative: CC: Abdominal pain, concern for constipation times 4-7 days Complicating co-morbidities: Anxiety Data collected from: patient, significant other Medical records reviewed: Family practice visits are reviewed Differential considered: Constipation, colitis, urinary tract infection, kidney stone Exam documented above, pertinent findings include: Abdominal distention with left lower quadrant and suprapubic tenderness but no evidence of an acute surgical abdomen Lab Test results independently reviewed as above. Pertinent findings: CBC is unremarkable Metabolic panel is reassuring Urine is unremarkable Imaging studies independently reviewed: Generalized colonic obstipation, present bilaterally.? No definite acute disease. Treatments: Zofran and IV hydromorphone Re-evaluations: Findings reviewed with patient and his significant other. He is still having a moderate amount of abdominal discomfort but no evidence of acute surgical abdomen. His postvoid residual was less than 20 cc and his urine did not suggest urinary tract infection. No evidence of hydronephrosis or kidney abnormalities on his CT scan. No acute acute colitis or diverticulitis. We discussed options for helping him relieve his constipation. Given that he is already had bottle of magnesium citrate in a number of doses of MiraLax I am going to recommend bowel prep with polyethylene glycol. It looks like bowel prep equivalents are somewhere between 10 and 14 single doses of MiraLax. Patient has 9 doses available at home. They are able to get some more. He would like to start this as soon as possible recommended 3-4 doses when he went home with 2-3 packets continuing every hour until his stool is essentially clear. We talked about pain control with this recommended Tylenol. I think the best pain control is going to be getting the stool out. And talked about narcotics causing increasing constipation and decreasing bowel motility and why this would be contraindicated for his current situation. He is given a note for work. All questions are answered he is safe for discharge Discharge Plan Departure Patient Disposition: Home Clinical Impression: Constipation Qualifiers: Constipation type: unspecified constipation type Qualified Code(s): K59.00 - Constipation, unspecified Abdominal pain Qualifiers: Abdominal location: lower abdomen, unspecified Qualified Code(s): R10.30 - Lower abdominal pain, unspecified Instructions: DI for Constipation Activity Restrictions/Additional Instructions: Thank you for coming in today Your workup is quite reassuring. Blood work did not show any acute findings in the CT scan of your abdomen showed significant stool throughout your entire colon but no masses, tumors infections or need for hospitalization or surgical consultation You have been doing all of the right treatments with the magnesium citrate as well as MiraLax and Dulcolax suppository. At this point I am going to recommend the equivalent of a bowel prep, the amount of MiraLax that you would have to drink to completely clean your colon prior to a colonoscopy. The equivalent MiraLax single packet dose is between 10 and 13 packets to equal the amount of medicine that would be in colon prep prescription. I would recommend that you have 3-4 packets when you get home this evening and then if you are still awake, 2-3 packets every hour until your stool is essentially clear. To prevent this level of obstipation (really really bad constipation) in the future, you may find that a single dose of MiraLax daily is helpful. You can not overdose on this medication. It simply pulls water entire colon, it is not absorbed and does not cause any injury to your colon. If you find that you are getting worse or develop any new symptoms, please feel free to return to the emergency department for further evaluation. Prescriptions: No Action Centrum for Men 1 tab PO .QDAY gabapentin 300 mg capsule 300 mg PO BID Qty: 60 0RF escitalopram oxalate 20 mg tablet 20 mg PO DAILY Qty: 90 3RF Rx Instructions: For the first 4 days take one-half tab daily then if no side effects increase to 1 tab daily bupropion HCl 150 mg tablet extended release 24 hr 150 mg PO QAM Qty: 90 3RF cyclobenzaprine 10 mg tablet 10 mg PO BEDTIME Qty: 30 2RF meloxicam 7.5 mg tablet 7.5 mg PO BID PRN (Reason: hand pain) Qty: 60 5RF Referrals: Andres Yanes ARNP [Primary Care Provider] - Stand Alone Forms: Patient Portal/API, Work Release Note
[2023-04-06] MEDS: LORazepam 2 MG/ML INJ 0.5 MG IV (21:57)
[2023-04-06 23:31] VITALS: BP 169/77; PULSE 72; O2SAT 98
== END 2023-04-06 23:41 | disposition home or self-care (01) ==
PROVIDERS: Emergency Provider Emergency Medicine; PCP Registered Nurse Diabetes Educator
DX: K59.00 Constipation, unspecified (principal); R10.30 Lower abdominal pain, unspecified
CPT/HCPCS: 36415; 74177; 80053; 81003; 81015; 83690; 85025; 87086; 96374; 96375; 99284; J1170; J2060; J2405; Q9967

== ENCOUNTER → 2024-07-30 07:27 | Outpatient (CLI) | payer OTHER, SELFPAY ==
[2024-07-30 08:11] LABS: Add Manual Diff / Slide Review NO; Basophils Absolute Auto 100 /uL (0-100); Basophils Percent Auto 0.7 % (0-2); Eosinophils Absolute Auto 200 /uL (0-450); Eosinophils Percent Auto 3.1 % (2-4); Hematocrit 42.7 % (41-53); Hemoglobin 14.4 g/dL (13.5-17.5); Lymphocytes Absolute Auto 2100 /uL (1100-4500); Lymphocytes Percent Auto 28.4 % (25-40); Mean Corpuscular HGB Conc 33.8 % (30-36); Mean Corpuscular Hemoglobin 30.1 PG (26-34); Monocytes Absolute Auto 600 /uL (0-900); Monocytes Percent Auto 7.5 % (3-14); Neutrophils Absolute Auto 4400 /uL (1500-7000); Neutrophils Percent Auto 60.3 % (50-75); Platelet Count 293 X10^3/uL (150-400); Red Blood Cell Count 4.79 X10^6/uL (4.5-5.9); Red Cell Distribution Width 13.7 % (11.6-14.8); White Blood Cell Count 7.4 X10^3/uL (4.5-11.0)
[2024-07-30 08:22] LABS: Hemoglobin A1C% w Est Avg Glu 5.5 % (4.0-6.0)
[2024-07-30 08:34] LABS: Alanine Aminotransferase 25 IU/L (<50); Albumin 4.6 g/dL (3.5-5.0); Albumin Globulin Ratio 1.9 (1.0-2.8); Alkaline Phosphatase 45 U/L (38-126); Aspartate Aminotransferase 23 IU/L (17-59); BUN Creatinine Ratio 26.7 (6-22); Bilirubin Total 0.3 mg/dL (0.2-1.3); Blood Urea Nitrogen 23 mg/dL (9-20); Calcium 9.7 mg/dL (8.4-10.2); Carbon Dioxide 27 mmol/L (22-32); Chloride 107 mmol/L (98-107); Cholesterol 264 mg/dL (140-199); Estimated Glomerular Filt Rate > 60 mL/min (>60); Globulin 2.4 g/dL (1.7-4.1); Glucose 98 mg/dL (70-100); HDL Cholesterol 78 mg/dL (40-60); HEMOLYSIS < 15 (0-50); LDL Cholesterol Calculated 170 mg/dL (<100); Potassium 4.6 mmol/L (3.4-5.1); Sodium 140 mmol/L (137-145); Triglycerides 82 mg/dL (35-150)
[2024-07-30 09:02] LABS: TSH w/ Reflex to FT4 1.28 uIU/mL (0.47-4.68)
[2024-07-30 09:04] LABS: Prostate Specific Antigen 1.24 ng/mL (0.10-4.00)
[2024-07-30 16:03] LABS: HIV 1 & 2 Ab/Ag 4th Gen Combo NEGATIVE (NEGATIVE); Hep C Virus Ab w/Reflex Quant NEGATIVE s/c (NEGATIVE)
== END ==
PROVIDERS: PCP Nurse Practitioner Family; Referring Provider Nurse Practitioner Family; Visit Provider Nurse Practitioner Family
DX: R63.4 Abnormal weight loss (principal); R20.0 Anesthesia of skin; R20.2 Paresthesia of skin; R53.83 Other fatigue
CPT/HCPCS: 36415; 80053; 80061; 83036; 84153; 84443; 85025; 86803; 87389

== ENCOUNTER 2024-09-03 13:55 | Emergency (ER) | payer OTHER, SELFPAY ==
[2024-09-03 14:02] VITALS: BP 203/109; PULSE 102; RESP 19; TEMP 36.7; O2SAT 98; BMI 20.3
--- NOTE | 2024-09-03 14:15 | PC.NURSE ---
Pt very aggressive with nurse in triage. RN explained process to pt. Pt states he wants to hold on blood work or imaging until seeing a doctor.
--- NOTE | 2024-09-03 19:00 | PC.NURSE ---
Pt translator/interpreter with pt because pt has hearing impairment. The translator/interpreter explained that pt was seen at the walk in clinic and was told he probably had phlebitis and instructed to wear compression stockings. Pt has left lower, medial thigh redness with some swelling and tenderness to touch. Denies SOB. Pt is concerned that he may have a blood clot. No history of blood clot. In triage pt declined labwork and imaging until seen by the doctor.
--- NOTE | 2024-09-03 19:32 | PC.NURSE ---
Entered patient room and introduced myself. Began speaking with patient and spouse. Informed that patient was hard of hearing and confirmed which side is better to speak with patient. Pt informs that left is best and even at this moment RN is speaking to loudly. RN apologizes and lowers voice volume. RN begins asking questions regarding current visit. tells RN about lump on leg and current changes that are causing concern and reason for current visit. Pt cuts off and asks how much longer they are going to be here. Informed patient You're probably going to be here for quite a bit longer. Unfortunately we only have 1 doctor on at this time and we do have an ambulance and other ill patients that he is with at this time. Pt tells This is awful! I'm just going to leave. Pt continues to make comments about the wait and how long they have been here then asks RN to give us a few minutes because I think we are going to leave. RN leaves exam room at this time.
--- NOTE | 2024-09-03 19:53 | PC.NURSE ---
out to nurses desk stating that she is going home to check on the crock pot and the cat. Taken back into exam room to continue conversation. Pt states When the fuck am I getting out of here? Explained to patient and that doctor is still in with a critical patient and its unclear how long that patient would need intervention. Pt states I don't care! I would have gone someplace else. continues on speaking about leaving, states pt is going to take out his hearing aid so he can attempt to rest. Pt states I don't want to be bothered by anyone other than the doctor. Informed patient that I would occasionally have to check in on him for safely purposes. Pt becomes aggressive stating I don't want anyone but the doctor coming in here! continues to attempt to appease patient. Pt continues to complain about the wait and not wanting to be interrupted by anyone other that the doctor. RN leaves room at this time.
--- NOTE | 2024-09-03 21:06 | PC.NURSE ---
Per - pt will refuse labs until seen by doctor. States he wants and US prior to any other testing.
--- NOTE | 2024-09-03 22:24 | ED_ITS ---
HPI - Skin/Abscess/Foreign Bdy General Chief complaint: Skin/Abscess/Foreign Body Stated complaint: poss blood clot L Leg Time Seen by Provider: 09/03/24 21:00 Source: family Limitations: other History of Present Illness HPI narrative: 54-year-old male with no history of previous coagulopathy or blood clots, not taking blood thinner medications or antiplatelets, has known left leg varicosities, recently seen by regular provider 1 week ago, now with 2 days duration of redness to the left medial knee and distal thigh. No trauma. No fevers or chills. Not taking any antibiotics, no diagnosis of any cellulitis. No draining wound. Denies chest pain or shortness of breath. Related Data Home Medications Medication Instructions Recorded Confirmed Centrum for Men 1 tab PO .QDAY 03/11/18 07/23/24 Previous Rx's Medication Instructions Recorded bupropion HCl 300 mg 24 hr tablet, 300 mg PO DAILY #90 tabs 07/23/24 extended release (Wellbutrin XL) clotrimazole 1 % lotion 1 applic topical BID #30 mL 07/23/24 meloxicam 7.5 mg tablet 7.5 mg PO BID PRN hand pain #60 07/23/24 tabs triamcinolone acetonide 0.025 % 1 applic topical BID #15 grams 07/23/24 topical ointment escitalopram oxalate 20 mg tablet 20 mg PO DAILY #90 tabs 07/24/24 gabapentin 300 mg capsule 300 mg PO BID #60 caps 08/20/24 apixaban 5 mg tablet (Eliquis) 5 mg PO BID #60 tabs 09/04/24 Allergies Allergy/AdvReac Type Severity Reaction Status Date / Time No Known Drug Allergies Allergy Verified 09/03/24 14:02 Patient History Medical History (Updated 09/04/24 @ 00:26 by Jaycob Carlton MD) Peripheral neuropathy Multiple sclerosis Carpal tunnel syndrome Anxiety and depression Allergy (Unknown) Healthy adult Depression Anorexia nervosa Hearing loss (~1970) Surgical History (Updated 08/21/24 @ 18:36 by Any Powell) Anesthesia History of neck surgery (~04/18/18) No pertinent past surgical history Social History marital status: unmarried,single pets and animals: Yes education level: college occupational status: employed seatbelt use: always water heater temp set < 120 deg: Yes working smoke detector in home: Yes fire extinguisher in home: Yes Smoking Status: Never smoker second hand exposure: No alcohol intake: former substance use type: marijuana during the past year weight has: decreased > 10 lbs well-balanced diet: daily or most days daily servings fruits/ve-4 caffeine: Yes eating out: rarely or never Smoking Status: Never smoker alcohol intake frequency: a few times a month Exam Narrative Exam Narrative: GENERAL: Well-developed patient, in mild distress. Intermittent preessive speech, generally directable HEAD: Atraumatic. Normocephalic. EYES: Pupils equal round and reactive. Extraocular motions intact. No scleral icterus. No injection or drainage. ENT: Nose without bleeding, purulent drainage. Throat without erythema, tonsillar hypertrophy or exudate. Airway patent. NECK: Trachea midline. Non tender CARDIOVASCULAR: Regular rate and rhythm without murmurs, gallops, or rubs. RESPIRATORY: Clear to auscultation. Breath sounds equal bilaterally. No wheezes, rales, or rhonchi. GASTROINTESTINAL: Abdomen soft, non-tender, nondistended. EXTREMITIES: No edema or joint tenderness. Redness and palpable cord left distal medial thigh area, no folliculitis or obvious crepitance or fluctuance. BACK: Nontender without deformity or crepitance. No flank tenderness. NEURO: AOx3. Motor functions grossly nonfocal. Psychiatric: Had been exhibiting somewhat paranoid behavior when in initial examining room 13, was paranoid about a camera, moved to room 10, intermittently progressive in his speech, frequently interruptive, however generally allowing examination and history, redirectable. SKIN: No rash or erythema of visible areas Initial Vital Signs Initial Vital Signs: Vital Signs Temperature 98.1 F 09/03/24 14:02 Pulse Rate 102 H 09/03/24 14:02 Respiratory Rate 19 09/03/24 14:02 Blood Pressure 203/109 H 09/03/24 14:02 Pulse Oximetry 98 09/03/24 14:02 Oxygen Delivery Method Room Air 09/03/24 14:02 Course Orders Ordered: ED Orders 09/03/24 23:02 US periph venous low extrem lt Stat 09/03/24 23:23 CBC Auto Diff [Complete Blood Count AUTO DIFF] Stat CMP [Comprehensive Metabolic Panel] Stat Lactate (Lactic Acid) Stat Prothrombin Time INR Stat Discontinued Medications Apixaban (Apixaban 5 Mg Tablet) 5 mg PO NOW ONE Stop: 09/04/24 00:30 Last Admin: 09/04/24 00:36 Dose: 5 mg Documented By: AB Vital Signs Vital signs: Vital Signs - 8 hr 09/04/24 00:29 Pulse Rate 89 Respiratory Rate 16 Blood Pressure 179/88 H Pulse Oximetry 100 Oxygen Delivery Method Room Air MDM - Skin/Abscess/Foreign Bdy Lab Data Attestation: I reviewed the patient's lab results. Lab results narrative: White blood cell count 9300, hemoglobin 13.6, platelets adequate. Renal function normal. Basic metabolic panel results unremarkable. Liver functions normal. 09/03/24 23:23 09/03/24 23:23 Labs: Lab Results 09/03/24 Range/Units 23:23 WBC 9.3 (4.5-11.0) X10^3/uL RBC 4.53 (4.5-5.9) X10^6/uL Hgb 13.6 (13.5-17.5) g/dL Hct 40.5 L (41-53) % MCV 89.4 (80-100) fL MCH 29.9 (26-34) PG MCHC 33.5 (30-36) % RDW 13.7 (11.6-14.8) % Plt Count 285 (150-400) X10^3/uL Neut % (Auto) 68.7 (50-75) % Lymph % (Auto) 19.5 L (25-40) % [place] % (Auto) 8.7 (3-14) % Eos % (Auto) 2.0 (2-4) % Baso % (Auto) 1.1 (0-2) % Neut # (Auto) 6400 (3400-5467) /uL Lymph # (Auto) 1800 (7394-5722) /uL [place] # (Auto) 800 (0-900) /uL Eos # (Auto) 200 (0-450) /uL Baso # (Auto) 100 (0-100) /uL PT 11.0 (9.4-12.5) SECONDS INR 1.0 (0.9-1.3) Sodium 138 (137-145) mmol/L Potassium 4.3 (3.4-5.1) mmol/L Chloride 106 (98-107) mmol/L Carbon Dioxide 24 (22-32) mmol/L BUN 19 (9-20) mg/dL Creatinine 0.87 (0.66-1.25) mg/dL Estimated GFR > 60 (>60) mL/min BUN/Creatinine Ratio 21.8 (6-22) Glucose 95 (70-100) mg/dL Lactate 0.7 (0.7-2.1) mmol/L Calcium 9.8 (8.4-10.2) mg/dL Total Bilirubin 0.6 (0.2-1.3) mg/dL AST 30 (17-59) IU/L ALT 29 (<50) IU/L Alkaline Phosphatase 53 (38-126) U/L Total Protein 7.8 (6.3-8.2) g/dL Albumin 4.8 (3.5-5.0) g/dL Globulin 3.0 (1.7-4.1) g/dL Albumin/Globulin Ratio 1.6 (1.0-2.8) Imaging Data Ultrasound venous Doppler left lower extremity: Radiologist's Impression: Close Vascular Ultrasound (Signed) Nelson Shaw - 09/03/24 [place] [address] Ultrasound Report Signed Patient: Eleazar Ventura MR#: [id number] : 1970 Acct:[id number] Age/Sex: 54 / M Date of Service: 09/03/24 Loc: ED Accession Number: [id number] Procedure: [facility] venous low extrem lt Ordering Provider: Jaycob Carlton MD PROCEDURE: US [facility] VENOUS LOW EXTREM LT INDICATIONS: pain/redness, suspect SVT, eval for DVT TECHNIQUE: Real-time imaging, as well as color and pulse Doppler interrogation, were performed of the lower extremity deep veins from the inguinal ligament to the popliteal fossa, with documentation of the visualized calf veins. COMPARISON: None. FINDINGS AND IMPRESSION: Occlusive thrombus is seen throughout the great saphenous vein, extending to the common femoral junction. This could be considered a DVT equivalent. No other occlusive thrombus identified in the deep system. Dictated by: Nelson Shaw M.D. on 09/03/2024 at 23:54 Approved by: Nelson Shaw M.D. on 09/03/2024 at 23:56 MDM Narrative Medical decision making narrative: 54-year-old male with history of anxiety and depression per chart, had been somewhat paranoid in initial room due to camera in room 13, seems improved in an alternate room 10, however seems somewhat intermittently progressive in his speech, argumentative, but generally cooperative. Refused blood draw that had been ordered. Allowed examination. Seems to have redness to the skin with cord left distal medial aspect thigh, likely superficial venous thrombosis. However we will requests venous Doppler to evaluate for any thrombosis in the deep vein system. He is agreeable to this evaluation. Initial elevated blood pressure 200/100, then refusing to wear blood pressure monitor. Refusing blood draw and further workup of blood pressure related issues. Repeat blood pressure 170 improved, without specific treatment. Ultrasound left lower extremity venous Doppler. Impressions: ?Occlusive thrombus is seen throughout the great saphenous vein, extending to the common femoral junction. This could be considered a DVT equivalent. No other occlusive thrombus identified within the deep system. ? See tele radiology report We discussed treatment of DVT, this clot does extend toward the common femoral system, discussed risk of embolization from DVT. Discussed diagnosis DVT and treatment usually with Eliquis oral anticoagulation for 3 months. No obvious contraindications to anticoagulation. Prescription for Eliquis 5 mg twice daily 30 day supply printed per their request to take to pharmacy, advised they would likely need 90 day total supply. Advised recheck early this next week, to facilitate further refills and also reassess symptoms and response to therapy. Home with family. Return precautions discussed. Discharge Plan Departure Patient Disposition: Home Clinical Impression: Deep vein blood clot of left lower extremity Activity Restrictions/Additional Instructions: Mr. Ventura, Nontraumatic left thigh redness and tenderness. On ultrasound examination there is clot in the greater saphenous vein that extends to the common femoral vein, which is essentially a deep vein thrombosis equivalent. Superficial vein thromboses can be treated with local warm packs and aspirin. However this is a deeper vein thrombosis, and has risk of progression and breaking off and causing problems wear the clot would travel to, including to the lungs for example. Blood thinner medications such as Eliquis 5 mg twice daily is usually used for 3 months for persons with their 1st DVT. Prescription initiated for you to take Eliquis, printed see can take it to your pharmacy. First dose given in the emergency department. Follow up with your regular doctor early next week to recheck your leg symptoms. Return to this/nearest emergency department for any chest pain or shortness of breath or increasing swelling to your left leg, or any other concerns prior. Thank you for allowing our team to evaluate you today. Prescriptions: New Eliquis 5 mg tablet 5 mg PO BID Qty: 60 0RF No Action Centrum for Men 1 tab PO .QDAY escitalopram oxalate 20 mg tablet 20 mg PO DAILY Qty: 90 3RF Rx Instructions: For the first 4 days take one-half tab daily then if no side effects increase to 1 tab daily gabapentin 300 mg capsule 300 mg PO BID Qty: 60 1RF meloxicam 7.5 mg tablet 7.5 mg PO BID PRN (Reason: hand pain) Qty: 60 5RF bupropion HCl [Wellbutrin XL] 300 mg tablet extended release 24 hr 300 mg PO DAILY Qty: 90 0RF triamcinolone acetonide 0.025 % ointment 1 applic topical BID Qty: 15 0RF Rx Instructions: apply to area no more than 14 days at a time clotrimazole 1 % lotion 1 applic topical BID Qty: 30 0RF Referrals: Barb Oneil, [facility] [Primary Care Provider] - Stand Alone Forms: Patient Portal/API/Survey, Work Release Note
--- NOTE | 2024-09-03 22:52 | PC.NURSE ---
Dr. Carlton at bedside
--- NOTE | 2024-09-03 23:02 | DI.US.S_ITS ---
PROCEDURE: US PERIPH VENOUS LOW EXTREM LT INDICATIONS: pain/redness, suspect SVT, eval for DVT TECHNIQUE: Real-time imaging, as well as color and pulse Doppler interrogation, were performed of the lower extremity deep veins from the inguinal ligament to the popliteal fossa, with documentation of the visualized calf veins. COMPARISON: None. FINDINGS AND IMPRESSION: Occlusive thrombus is seen throughout the great saphenous vein, extending to the common femoral junction. This could be considered a DVT equivalent. No other occlusive thrombus identified in the deep system. Dictated by: Nelson Shaw M.D. on 09/03/2024 at 23:54 Approved by: Nelson Shaw M.D. on 09/03/2024 at 23:56
--- NOTE | 2024-09-03 23:16 | PC.NURSE ---
PT ambulatory to restroom without difficulty or assistance.
--- NOTE | 2024-09-03 23:25 | PC.NURSE ---
to RN that pt is ready to do blood work. RN into bedside, confirmed with patient and gathered supplies. While RN prepping pt pt pulls arm away stating I don't like my arm that way! RN explains to patient that elbow needs to be straight for IV start. RN asks pt to place arm in a position of comfort. Pt continues to complain about arm having to be straight. Pt eventually settles on a semi-straight position that is compatible with IV start. LAC IV start without difficulty. While drawing labs from IV pt states to I don't like her! RN informed pt that another nurse will take over his care. RN completes IV and is cleaning up area when pt becomes escalated d/t IV being placed. Why is this in here? Why is this thing hanging out of my arm? explains to patient that it's necessary if more blood is required or medication is ordered. Pt demands to have IV removed. RN removes IV as requested and leaves room at this time. October, customer associate made aware.
[2024-09-03 23:34] LABS: Add Manual Diff / Slide Review NO; Basophils Absolute Auto 100 /uL (0-100); Basophils Percent Auto 1.1 % (0-2); Eosinophils Absolute Auto 200 /uL (0-450); Hematocrit 40.5 % (41-53); Hemoglobin 13.6 g/dL (13.5-17.5); Lymphocytes Absolute Auto 1800 /uL (1100-4500); Lymphocytes Percent Auto 19.5 % (25-40); Mean Corpuscular HGB Conc 33.5 % (30-36); Mean Corpuscular Hemoglobin 29.9 PG (26-34); Mean Corpuscular Volume 89.4 fL (80-100); Monocytes Absolute Auto 800 /uL (0-900); Monocytes Percent Auto 8.7 % (3-14); Neutrophils Absolute Auto 6400 /uL (1500-7000); Neutrophils Percent Auto 68.7 % (50-75); Platelet Count 285 X10^3/uL (150-400); Red Blood Cell Count 4.53 X10^6/uL (4.5-5.9); Red Cell Distribution Width 13.7 % (11.6-14.8); White Blood Cell Count 9.3 X10^3/uL (4.5-11.0)
--- NOTE | 2024-09-03 23:36 | PC.NURSE ---
US tech out to RN informing that pt is refusing to remove pants for US. Tech directed to inform Dr. Carlton. Dr. Carlton to bedside.
[2024-09-03 23:46] LABS: Alanine Aminotransferase 29 IU/L (<50); Albumin 4.8 g/dL (3.5-5.0); Albumin Globulin Ratio 1.6 (1.0-2.8); Alkaline Phosphatase 53 U/L (38-126); Aspartate Aminotransferase 30 IU/L (17-59); BUN Creatinine Ratio 21.8 (6-22); Bilirubin Total 0.6 mg/dL (0.2-1.3); Blood Urea Nitrogen 19 mg/dL (9-20); Calcium 9.8 mg/dL (8.4-10.2); Carbon Dioxide 24 mmol/L (22-32); Chloride 106 mmol/L (98-107); Estimated Glomerular Filt Rate > 60 mL/min (>60); Glucose 95 mg/dL (70-100); HEMOLYSIS < 15 (0-50); Potassium 4.3 mmol/L (3.4-5.1); Sodium 138 mmol/L (137-145); Total Protein 7.8 g/dL (6.3-8.2)
[2024-09-03 23:47] LABS: Lactate (Lactic Acid) 0.7 mmol/L (0.7-2.1)
[2024-09-04 00:29] VITALS: BP 179/88; PULSE 89; RESP 16; O2SAT 100
[2024-09-04] MEDS: APIXABAN 5 MG TABLET PO (00:36)
== END 2024-09-04 00:37 | disposition home or self-care (01) ==
PROVIDERS: Emergency Provider Emergency Medicine; PCP Nurse Practitioner Family
DX: I82.402 Acute embolism and thrombosis of unspecified deep veins of left lower extremity (principal); Z79.01 Long term (current) use of anticoagulants
CPT/HCPCS: 80053; 83605; 85025; 85610; 93971; 99283; 99284

== ENCOUNTER → 2024-10-28 08:33 | Outpatient (CLI) | payer OTHER, SELFPAY ==
--- NOTE | 2024-10-28 08:36 | DI.RAD.S_ITS ---
PROCEDURE: XR CERVICAL SPINE 2V OR 3V INDICATIONS: Cervical radiculopathy, TECHNIQUE: 3 view(s) of the cervical spine were acquired. COMPARISON: [facility], CR, XR CERVICAL SPINE 2V OR 3V, 12/23/2018, 9:43. FINDINGS: FINDINGS: Cervical spine curvature and alignment: Normal. Bones: There are no osseous abnormalities. Disc spaces: Anterior C5-6 fusion is solid. It is provided by interbody graft, anterior plate and screws. Mild C4-5 and C6-7 degenerative disc disease noted. There is moderate degenerative facet disease C3-4 through C7-T1 Soft tissues: No soft tissue swelling, calcification or mass. IMPRESSION: Anterior C5-6 fusion solid. No complication Degeneration Dictated by: John Dumas M.D. on 10/28/2024 at 10:11 Approved by: John Dumas M.D. on 10/28/2024 at 10:12
[2024-10-28 09:48] LABS: BUN Creatinine Ratio 27.4 (6-22); Blood Urea Nitrogen 20 mg/dL (9-20); C-Reactive Protein Quant < 0.5 mg/dL (<1.0); Calcium 10.5 mg/dL (8.4-10.2); Carbon Dioxide 25 mmol/L (22-32); Chloride 102 mmol/L (98-107); Cholesterol 295 mg/dL (140-199); Estimated Glomerular Filt Rate > 60 mL/min (>60); Glucose 92 mg/dL (70-100); HDL Cholesterol 92 mg/dL (40-60); HEMOLYSIS < 15 (0-50); LDL Cholesterol Calculated 166 mg/dL (<100); Potassium 4.5 mmol/L (3.4-5.1); Sodium 138 mmol/L (137-145); Triglycerides 185 mg/dL (35-150)
[2024-10-28 09:53] LABS: Erythrocyte Sedimentation Rate 4 MM/HR (0-15)
[2024-10-28 10:32] LABS: Vitamin B12 730 pg/mL (239-931)
== END ==
PROVIDERS: PCP Nurse Practitioner Family; Referring Provider Nurse Practitioner Family; Visit Provider Nurse Practitioner Family
DX: M50.121 Cervical disc disorder at C4-C5 level with radiculopathy (principal); M47.22 Other spondylosis with radiculopathy, cervical region; M47.23 Other spondylosis with radiculopathy, cervicothoracic region; E78.5 Hyperlipidemia, unspecified; Z98.1 Arthrodesis status; G62.9 Polyneuropathy, unspecified
CPT/HCPCS: 36415; 72040; 80048; 80061; 82607; 85651; 86140

== ENCOUNTER → 2025-07-20 12:11 | Outpatient (CLI) | payer OTHER, SELFPAY | PROVIDERS: PCP Nurse Practitioner Family; Referring Provider Nurse Practitioner Family; Visit Provider Nurse Practitioner Family | DX: R21 Rash and other nonspecific skin eruption (principal) | CPT/HCPCS: 87070; 87075; 87205 ==